=== PATIENT | female | born 1955 | race Caucasian/White ===

== ENCOUNTER 2020-02-17 10:48 | Inpatient (IN) | payer MEDICARE ==
[~2020-02-17] VITALS: Ht 157.5 cm; Wt 72.6 kg
[~2020-02-17 10:48] MED LIST: CARAFATE1 GM PO; CLARITIN10 MG PO; ECOTRIN81 MG PO; IBUPROFEN600 MG PO; LISINOPRIL-HCT1 EACH PO; NORCO 5-325 TA1 EACH PO; PROTONIX40 MG PO; ZOCOR20 MG PO; ZOFRAN4 MG PO
[2020-02-17 12:33] LABS: HEMOGLOBIN 11.9 gm/dl (12.3-15.3); WHITE BLOOD COUNT 11.1 K/UL (4.5-11.0)
[2020-02-17 12:55] LABS: BUN/CREATININE RATIO 21 (0-10); RED BLOOD COUNT 3.9 M/UL (4.00-5.10)
[2020-02-18 16:54] LABS: HEMOGLOBIN 11.4 gm/dl (12.3-15.3); RED BLOOD COUNT 3.81 M/UL (4.00-5.10)
[2020-02-18 16:57] LABS: WHITE BLOOD COUNT 14.2 K/UL (4.5-11.0)
[2020-02-19 03:34] LABS: HEMOGLOBIN 11.9 gm/dl (12.3-15.3); RED BLOOD COUNT 3.94 M/UL (4.00-5.10)
[2020-02-20 10:42] LABS: HEMOGLOBIN 10.9 gm/dl (12.3-15.3); RED BLOOD COUNT 3.59 M/UL (4.00-5.10); WHITE BLOOD COUNT 12.3 K/UL (4.5-11.0)
[2020-02-20 11:06] LABS: BUN/CREATININE RATIO 34 (0-10)
--- NOTE | 2020-02-20 11:15 | NUR ---
PT TRANSFERRED AT 1105 TO ICU PER MD ORDER, PT O2 SAT IN THE 80'S ON 100% FIO2 ON BIPAP, BP AND HR STABLE AT TIME OF TRANSFER, WAS CALLED AND MADE AWARE
[2020-02-21 05:26] LABS: HEMOGLOBIN 11.5 gm/dl (12.3-15.3); RED BLOOD COUNT 3.77 M/UL (4.00-5.10)
[2020-02-21 05:31] LABS: BUN/CREATININE RATIO 34 (0-10)
[2020-02-21 05:55] LABS: WHITE BLOOD COUNT 22.9 K/UL (4.5-11.0)
[2020-02-22 06:53] LABS: HEMOGLOBIN 9.9 gm/dl (12.3-15.3)
[2020-02-22 07:04] LABS: RED BLOOD COUNT 3.35 M/UL (4.00-5.10); WHITE BLOOD COUNT 11.7 K/UL (4.5-11.0)
[2020-02-22 07:11] LABS: BUN/CREATININE RATIO 40 (0-10)
[2020-02-23 04:38] LABS: HEMOGLOBIN 10.1 gm/dl (12.3-15.3); RED BLOOD COUNT 3.33 M/UL (4.00-5.10); WHITE BLOOD COUNT 13.8 K/UL (4.5-11.0)
[2020-02-23 05:32] LABS: BUN/CREATININE RATIO 57 (0-10)
[2020-02-24 05:26] LABS: HEMOGLOBIN 10.1 gm/dl (12.3-15.3); RED BLOOD COUNT 3.36 M/UL (4.00-5.10)
[2020-02-24 05:28] LABS: WHITE BLOOD COUNT 21.1 K/UL (4.5-11.0)
[2020-02-24 05:41] LABS: BUN/CREATININE RATIO 59 (0-10)
[2020-02-25 06:37] LABS: HEMOGLOBIN 10.3 gm/dl (12.3-15.3); RED BLOOD COUNT 3.29 M/UL (4.00-5.10)
[2020-02-25 06:47] LABS: WHITE BLOOD COUNT 28.8 K/UL (4.5-11.0)
[2020-02-25 07:01] LABS: BUN/CREATININE RATIO 78 (0-10)
[2020-02-26 04:58] LABS: HEMOGLOBIN 10.5 gm/dl (12.3-15.3); RED BLOOD COUNT 3.37 M/UL (4.00-5.10)
[2020-02-26 05:28] LABS: BUN/CREATININE RATIO 72 (0-10)
[2020-02-27 04:52] LABS: HEMOGLOBIN 10.2 gm/dl (12.3-15.3); RED BLOOD COUNT 3.31 M/UL (4.00-5.10); WHITE BLOOD COUNT 24.9 K/UL (4.5-11.0)
[2020-02-27 05:20] LABS: BUN/CREATININE RATIO 74 (0-10)
[2020-02-28 04:51] LABS: BUN/CREATININE RATIO 70 (0-10)
[2020-02-28 07:00] LABS: WHITE BLOOD COUNT 30.7 K/UL (4.5-11.0)
[2020-02-28 07:01] LABS: HEMOGLOBIN 10.3 gm/dl (12.3-15.3); RED BLOOD COUNT 3.38 M/UL (4.00-5.10)
[2020-02-29 05:47] LABS: HEMOGLOBIN 10.5 gm/dl (12.3-15.3)
[2020-02-29 06:08] LABS: BUN/CREATININE RATIO 80 (0-10)
[2020-02-29 06:57] LABS: WHITE BLOOD COUNT 22.4 K/UL (4.5-11.0)
[2020-02-29 09:26] LABS: WHITE BLOOD COUNT 30.7 K/UL (4.5-11.0)
[2020-03-01 05:19] LABS: BUN/CREATININE RATIO 72 (0-10)
[2020-03-01 05:20] LABS: HEMOGLOBIN 13.3 gm/dl (12.3-15.3); RED BLOOD COUNT 4.41 M/UL (4.00-5.10); WHITE BLOOD COUNT 11.8 K/UL (4.5-11.0)
[2020-03-02 02:59] LABS: RED BLOOD COUNT 3.69 M/UL (4.00-5.10); WHITE BLOOD COUNT 13.3 K/UL (4.5-11.0)
[2020-03-02 03:00] LABS: HEMOGLOBIN 10.9 gm/dl (12.3-15.3)
[2020-03-02 03:14] LABS: BUN/CREATININE RATIO 61 (0-10)
[2020-03-03 09:52] LABS: HEMOGLOBIN 11.9 gm/dl (12.3-15.3); RED BLOOD COUNT 3.9 M/UL (4.00-5.10)
[2020-03-03 09:59] LABS: WHITE BLOOD COUNT 9.8 K/UL (4.5-11.0)
[2020-03-03 10:11] LABS: BUN/CREATININE RATIO 68 (0-10)
[2020-03-04 08:33] LABS: HEMOGLOBIN 11.5 gm/dl (12.3-15.3); RED BLOOD COUNT 3.85 M/UL (4.00-5.10)
[2020-03-04 08:56] LABS: BUN/CREATININE RATIO 53 (0-10)
[2020-03-05 10:04] LABS: HEMOGLOBIN 10.9 gm/dl (12.3-15.3); RED BLOOD COUNT 3.6 M/UL (4.00-5.10); WHITE BLOOD COUNT 8.6 K/UL (4.5-11.0)
[2020-03-05 10:26] LABS: BUN/CREATININE RATIO 48 (0-10)
[2020-03-06 09:31] LABS: RED BLOOD COUNT 3.69 M/UL (4.00-5.10); WHITE BLOOD COUNT 7.5 K/UL (4.5-11.0)
[2020-03-06 09:54] LABS: BUN/CREATININE RATIO 38 (0-10)
[2020-03-06] MEDS ORDERED: COMBIVENT RESPIM4 GM INH (11:25)
[2020-03-06] MEDS ORDERED: IPRAT-ALBUT 0.5-3 ML NEB (11:25)
[2020-03-06] MEDS ORDERED: VITAMIN C 500500 MG PO (12:37)
[2020-03-06] MEDS ORDERED: PULMICORT0.5 MG/21 INH (12:37)
[2020-03-06] MEDS ORDERED: VITAMIN D 40400 UNIT PO (12:37)
== END 2020-03-06 19:00 | disposition home health service (06) | DRG 207 ==
LOC: ER1 10:48 → CDU 14:15 → M/S 14:15 → PROG CARE 14:15 → 2 EAST 14:15 → M/S 17:18 → PROG CARE 02-19 13:35 → 2 EAST 02-20 11:20 → PROG CARE 03-01 20:24
PROVIDERS: Emergency Medicine; Family Medicine; Internal Medicine; Internal Medicine Pulmonary Disease; ADMIT Internal Medicine Infectious Disease
PROC: 8E0ZXY6 Isolation (ICD-10-PCS; 2020-02-17)
PROC: XW033E5 Introduction of Remdesivir Anti-infective into Peripheral Vein, Percutaneous Approach, New Technology Group 5 (ICD-10-PCS; 2020-02-19)
PROC: XW13325 Transfusion of Convalescent Plasma (Nonautologous) into Peripheral Vein, Percutaneous Approach, New Technology Group 5 (ICD-10-PCS; 2020-02-19)
PROC: 0BH17EZ Insertion of Endotracheal Airway into Trachea, Via Natural or Artificial Opening (ICD-10-PCS; principal; 2020-02-20)
PROC: 5A1955Z Respiratory Ventilation, Greater than 96 Consecutive Hours (ICD-10-PCS; 2020-02-20)
PROC: 02HV33Z Insertion of Infusion Device into Superior Vena Cava, Percutaneous Approach (ICD-10-PCS; 2020-02-20)
PROC: B548ZZA Ultrasonography of Superior Vena Cava, Guidance (ICD-10-PCS; 2020-02-20)
DX: U07.1 COVID-19 (principal); J12.82 Pneumonia due to coronavirus disease 2019; J80 Acute respiratory distress syndrome; A41.89 Other specified sepsis; R65.21 Severe sepsis with septic shock; J15.9 Unspecified bacterial pneumonia; G93.41 Metabolic encephalopathy; N17.9 Acute kidney failure, unspecified; E87.2 Acidosis; I10 Essential (primary) hypertension; E78.5 Hyperlipidemia, unspecified; K21.9 Gastro-esophageal reflux disease without esophagitis; Z82.49 Family history of ischemic heart disease and other diseases of the circulatory system; Z79.82 Long term (current) use of aspirin; Z79.899 Other long term (current) drug therapy; E87.6 Hypokalemia; D69.6 Thrombocytopenia, unspecified; E87.70 Fluid overload, unspecified; D64.89 Other specified anemias; E16.0 Drug-induced hypoglycemia without coma; T38.0X5A Adverse effect of glucocorticoids and synthetic analogues, initial encounter
CPT/HCPCS: 31500; 36415; 36600; 71045; 80048; 80053; 81001; 82550; 82553; 82728; 82803; 82962; 83605; 83615; 83690; 83735; 83874; 83880; 84100; 84484; 85007; 85025; 85027; 85379; 85384; 85610; 86140; 86900; 86901; 86927; 87040; 87070; 87081; 87086; 87205; 92526; 92610; 93005; 94003; 94640; 94660; 94664; 94760; 96365; 96375; 97110-GP-CQ; 97116-GP-CQ; 97163; 97167; 97530; 97530-GP-CQ; 97535; 99285; J0696; J1100; J1650; J1940; J2185; J2250; J2310; J2704; J3010; J7030; J7050; U0002

== ENCOUNTER → 2020-04-28 | Outpatient (CLI) | payer MEDICARE ==
[~2020-04-28] MED LIST changes: +COMBIVENT RESPIM4 GM INH; +IPRAT-ALBUT 0.5-3 ML NEB; +PULMICORT0.5 MG/21 INH; +VITAMIN C 500500 MG PO; +VITAMIN D 40400 UNIT PO
== END ==
LOC: HEART 5 13:45
DX: U07.1 COVID-19 (principal); J12.82 Pneumonia due to coronavirus disease 2019; J96.01 Acute respiratory failure with hypoxia; R91.8 Other nonspecific abnormal finding of lung field; R94.2 Abnormal results of pulmonary function studies
CPT/HCPCS: 71046; 94060; 94729

== ENCOUNTER → 2020-05-29 | Outpatient (CLI) | payer MEDICARE | LOC: KOH-I 12:25 | DX: J84.10 Pulmonary fibrosis, unspecified (principal) | CPT/HCPCS: 71250 ==

== ENCOUNTER → 2020-06-16 | Outpatient (CLI) | payer MEDICARE | LOC: RT 14:26 | DX: R09.02 Hypoxemia (principal) | CPT/HCPCS: 36600; 82803 ==

== ENCOUNTER → 2020-08-28 | Outpatient (CLI) | payer MEDICARE | LOC: KOH-I 14:35 | DX: J84.10 Pulmonary fibrosis, unspecified (principal); B94.8 Sequelae of other specified infectious and parasitic diseases | CPT/HCPCS: 71250 ==

== ENCOUNTER → 2021-04-29 | Outpatient (CLI) | payer MEDICARE | LOC: EXRD 13:59 | DX: U09.9 Post COVID-19 condition, unspecified (principal); J43.9 Emphysema, unspecified | CPT/HCPCS: 71046 ==